=== PATIENT | female | born 1980 | race Two or more races ===

== ENCOUNTER → 2024-01-04 13:20 | Outpatient (REF) | payer BC, SELFPAY ==
--- NOTE | 2024-01-04 13:25 | PN.DIAED06 ---
Meal Plan - Gestational
- Breakfast
Gestational Diabetes Meal Plan Name: 1800 calories
Breakfast - Total Carbohydrate (grams): 30
Breakfast - Starch Carbohydrate: 1
Breakfast - Fruit Carbohydrate: 0
Breakfast - Milk Carbohydrate: 1
Breakfast - Nonstarchy Vegetables: Yes
Breakfast - Meat/Protein: 1
Breakfast - Fat: 2
- Morning Snack
Morning Snack - Total Carbohydrate (grams): 30
Morning Snack - Starch Carbohydrate: 1
Morning Snack - Fruit Carbohydrate: 0
Morning Snack - Milk Carbohydrate: 1
Morning Snack - Nonstarchy Vegetables: Yes
Morning Snack - Meat/Protein: 0.5
Morning Snack - Fat: 0
- Lunch
Lunch - Total Carbohydrate (grams): 45
Lunch - Starch Carbohydrate: 2
Lunch - Fruit Carbohydrate: 1
Lunch - Milk Carbohydrate: 0
Lunch - Nonstarchy Vegetables: Yes
Lunch - Meat/Protein: 2
Lunch - Fat: 1
- Afternoon Snack
Afternoon Snack - Total Carbohydrate (grams): 30
Afternoon Snack - Starch Carbohydrate: 1
Afternoon Snack - Fruit Carbohydrate: 1
Afternoon Snack - Milk Carbohydrate: 0
Afternoon Snack - Nonstarchy Vegetables: Yes
Afternoon Snack - Meat/Protein: 1
Afternoon Snack - Fat: 0
- Dinner
Dinner - Total Carbohydrate (grams): 45
Dinner - Starch Carbohydrate: 2
Dinner - Fruit Carbohydrate: 0
Dinner - Milk Carbohydrate: 1
Dinner - Nonstarchy Vegetables: Yes
Dinner - Meat/Protein: 2
Dinner - Fat: 2
- Evening Snack
Evening Snack - Total Carbohydrate (grams): 30
Evening Snack - Starch Carbohydrate: 1
Evening Snack - Fruit Carbohydrate: 0
Evening Snack - Milk Carbohydrate: 1
Evening Snack - Nonstarchy Vegetables: Yes
Evening Snack - Meat/Protein: 1
Evening Snack - Fat: 1
--- NOTE | 2024-01-04 13:27 | PN.DE ---
Diabetes Education
- -
Gestational Diabetes Consult
Met with Ms. Esparza and her - Tori today, , currently at 22 weeks of gestation, here today for medical nutrition therapy.
Explained glucose metabolism in body and what occurs during to cause increase blood sugar. Discussed importance of keeping BS well controlled to avoid complications to the baby during and after (macrosomia, hypoglycemia). Explained
to Julianna that she is at increased risk of developing T2DM in the future.
Provided with and instructions given on Contour Next glucometer, instructions on proper testing technique, testing sites and testing pattern given. She is aware to test FBS and 2 hr pp each meal. Expected results for FBS <95 mg/dl and 2 hr pp <120
mg/dl. She is aware if testing 1 hr pp, result should be <140 mg/dl. Noted for blood sugar of 114 1.5 hrs after lunch.
Julianna reports that she has a glucose monitor at home and has been monitoring her blood sugars 2 hrs after each meal since dx of GDM. Reviewed proper testing technique, testing sites and testing pattern. She is aware to test FBS and 2 hr pp each
meal. Expected results for FBS <95 mg/dl and 2 hr pp <120 mg/dl.
Julianna does not eat any animal protein and her diet consists mainly of starches, Milk, yogurts, plant based proteins from legumes and fruits. Explained high carbohydrate diet and macronutrients and the effect each has on blood sugar. Provided with
1800 roberta GDM meal plan. She was educated on how to read a nutritional fact label and look at total CHO in relation to serving size. No fruit or fruit juice until noontime. Provided with handout on snacks as well as 'Choose Your Foods' booklet. A Log
sheet was provided for her to record results, she will send her 4 day meal log with all her FBG and 2hr Post prandial glucose numbers to this office for review. In addition, she will send all her glucose readings to [facility] every
Wednesday. She was encouraged to keep a regular activity schedule and will reach out should she require insulin.
Pt's was asking about script for CGM, instructed to contact [facility] for script. They will reach out if they need assistance with insertion of device.
== END ==
LOC: DES 13:20
PROVIDERS: ATTENDING PHYSICIAN Student in an Organized Health Care Education/Training Program
DX: O24.419 Gestational diabetes mellitus in pregnancy, unspecified control (principal)
CPT/HCPCS: 99078

== ENCOUNTER → 2024-02-03 12:24 | Outpatient (REF) | payer BC, SELFPAY | LOC: PNTC 12:24 | PROVIDERS: ATTENDING PHYSICIAN Student in an Organized Health Care Education/Training Program | DX: O24.419 Gestational diabetes mellitus in pregnancy, unspecified control (principal); O09.529 Supervision of elderly multigravida, unspecified trimester | CPT/HCPCS: 76815 ==

== ENCOUNTER → 2024-02-15 13:31 | Outpatient (REF) | payer BC, SELFPAY | LOC: PNTC 13:31 | PROVIDERS: ATTENDING PHYSICIAN Obstetrics & Gynecology | DX: O24.419 Gestational diabetes mellitus in pregnancy, unspecified control (principal); O09.529 Supervision of elderly multigravida, unspecified trimester; O99.210 Obesity complicating pregnancy, unspecified trimester | CPT/HCPCS: 76816 ==

== ENCOUNTER → 2024-03-21 09:09 | Outpatient (REF) | payer BC, SELFPAY | LOC: PNTC 09:09 | PROVIDERS: ATTENDING PHYSICIAN Obstetrics & Gynecology | DX: O24.419 Gestational diabetes mellitus in pregnancy, unspecified control (principal); O09.529 Supervision of elderly multigravida, unspecified trimester; O99.210 Obesity complicating pregnancy, unspecified trimester | CPT/HCPCS: 59025; 76815 ==

== ENCOUNTER → 2024-03-28 10:10 | Outpatient (REF) | payer BC, SELFPAY | LOC: PNTC 10:10 | PROVIDERS: ATTENDING PHYSICIAN Obstetrics & Gynecology | DX: O09.529 Supervision of elderly multigravida, unspecified trimester (principal); O99.210 Obesity complicating pregnancy, unspecified trimester; O24.419 Gestational diabetes mellitus in pregnancy, unspecified control | CPT/HCPCS: 59025; 76815 ==

== ENCOUNTER → 2024-04-04 09:10 | Outpatient (REF) | payer BC, SELFPAY | LOC: PNTC 09:10 | PROVIDERS: ATTENDING PHYSICIAN Obstetrics & Gynecology | DX: O24.419 Gestational diabetes mellitus in pregnancy, unspecified control (principal); O99.210 Obesity complicating pregnancy, unspecified trimester; O09.529 Supervision of elderly multigravida, unspecified trimester | CPT/HCPCS: 59025; 76815 ==

== ENCOUNTER → 2024-04-11 09:28 | Outpatient (REF) | payer BC, SELFPAY | LOC: PNTC 09:28 | PROVIDERS: ATTENDING PHYSICIAN Obstetrics & Gynecology | DX: O09.529 Supervision of elderly multigravida, unspecified trimester (principal); O99.210 Obesity complicating pregnancy, unspecified trimester | CPT/HCPCS: 59025; 76816 ==

== ENCOUNTER 2024-04-18 11:47 | Observation (INO) | payer BC, SELFPAY ==
[2024-04-18 12:05] VITALS: BP 132/86; BMI 32.0
[2024-04-18 12:07] LABS: % Basophils 0.4 % (0-2); % Eosinophils 0.8 % (0-6); % Lymphocytes 17.1 % (20.5-51.1); % Monocytes 6.2 % (1.7-9.3); % Neutrophils 74.5 % (42.2-75.2); Absolute Basophils 0.1 10^3/uL (0-0.2); Absolute Eosinophils 0.1 10^3/uL (0-0.7); Absolute Immature Granulocytes 0.1 10^3/uL (0-0.05); Absolute Lymphocytes 2.1 10^3/uL (1.2-3.4); Absolute Monocytes 0.8 10^3/uL (0.1-0.6); Absolute Neutrophils 9.2 10^3/uL (1.4-6.5); Hematocrit 36.3 % (37.0-47.0); Hemoglobin 12.5 g/dL (12.0-16.0); Mean Corp Hgb Conc. 34.4 g/dL (33.0-37.0); Mean Corpuscular Hgb 28.4 pg (27.0-31.0); Mean Corpuscular Volume 82.5 fL (81.0-99.0); Mean Platelet Volume 10.1 fL (7.4-10.4); Nucleated Red Blood Cells % 0 %; Platelet Count 213 10^3/uL (130-400); Red Cell Dist. Width 13.4 % (11.5-14.5); White Blood Cell Count 12.3 10^3/uL (4.8-10.8)
[2024-04-18 12:23] LABS: ALT (SGPT) 19 U/L (0-35); AST (SGOT) 26 U/L (14-36); Alkaline Phosphatase 201 U/L (38-126); Blood Urea Nitrogen 7 mg/dl (7-17); Calcium 9.5 mg/dl (8.4-10.2); Carbon Dioxide 20 mmol/L (22-30); Chloride 105 mmol/L (98-107); Estimated Creatinine Clearance 110 ml/min; Glucose 87 mg/dl (70-99); Potassium 4.3 mmol/L (3.5-5.1); Sodium 134 mmol/L (135-145); Total Bilirubin 0.4 mg/dl (0.2-1.3); Total Protein 7.1 g/dl (6.3-8.2); eGFR > 60.00
[2024-04-18 12:58] LABS: Protein/creatinine Ratio 0.2; Urine Protein 13 mg/dl
== END 2024-04-18 15:47 | disposition home or self-care (01) ==
LOC: PNTC-IN 11:47
PROVIDERS: ADMITTING PHYSICIAN Obstetrics & Gynecology; ATTENDING PHYSICIAN Student in an Organized Health Care Education/Training Program
DX: O13.3 Gestational [pregnancy-induced] hypertension without significant proteinuria, third trimester (principal); O24.410 Gestational diabetes mellitus in pregnancy, diet controlled; Z3A.37 37 weeks gestation of pregnancy
CPT/HCPCS: 59025; 76815; 80053; 82570; 84156; 85025; G0378

== ENCOUNTER 2024-04-18 21:38 | Inpatient (IN) | payer BC, SELFPAY ==
[2024-04-18 22:06] VITALS: BP 133/81; BMI 32.0
[2024-04-18 22:32] LABS: Glucose - Point of Care 130 mg/dl (70-99)
[2024-04-18 22:36] LABS: % Basophils 0.3 % (0-2); % Eosinophils 1.1 % (0-6); % Immature Granulocytes 0.7 % (0-0.5); % Lymphocytes 17.8 % (20.5-51.1); % Monocytes 6.3 % (1.7-9.3); % Neutrophils 73.8 % (42.2-75.2); Absolute Eosinophils 0.1 10^3/uL (0-0.7); Absolute Immature Granulocytes 0.1 10^3/uL (0-0.05); Absolute Lymphocytes 2.3 10^3/uL (1.2-3.4); Absolute Monocytes 0.8 10^3/uL (0.1-0.6); Absolute Neutrophils 9.3 10^3/uL (1.4-6.5); Hematocrit 34.2 % (37.0-47.0); Hemoglobin 12.1 g/dL (12.0-16.0); Mean Corp Hgb Conc. 35.4 g/dL (33.0-37.0); Mean Corpuscular Hgb 28.7 pg (27.0-31.0); Mean Platelet Volume 10.2 fL (7.4-10.4); Nucleated Red Blood Cells % 0 %; Platelet Count 219 10^3/uL (130-400); Red Blood Cell Count 4.22 10^6/uL (4.20-5.40); Red Cell Dist. Width 13.4 % (11.5-14.5); White Blood Cell Count 12.6 10^3/uL (4.8-10.8)
[2024-04-18 22:52] LABS: ALT (SGPT) 19 U/L (0-35); AST (SGOT) 24 U/L (14-36); Albumin 3.8 g/dl (3.5-5.0); Alkaline Phosphatase 193 U/L (38-126); Blood Urea Nitrogen 9 mg/dl (7-17); Calcium 9.4 mg/dl (8.4-10.2); Carbon Dioxide 22 mmol/L (22-30); Chloride 105 mmol/L (98-107); Estimated Creatinine Clearance 110 ml/min; Glucose 128 mg/dl (70-99); Potassium 3.9 mmol/L (3.5-5.1); Sodium 138 mmol/L (135-145); Total Bilirubin 0.4 mg/dl (0.2-1.3); Total Protein 6.8 g/dl (6.3-8.2); eGFR > 60.00
[2024-04-18 23:00] LABS: Protein/creatinine Ratio 0.1; Urine Protein 19 mg/dl
--- NOTE | 2024-04-19 04:35 | DOWNTIME ---
There was a [employer] Client Campaign Worker Downtime on 04/19/2024 from 0100 to 04/19/2023 at 0205 . Downtime documentation of patient's care, including medication administrations, has been reconciled in the electronic record per guidelines. Refer to the
patient's paper chart under the miscellaneous tab to see printed paper medication records and downtime forms.
== END 2024-04-19 08:45 | disposition home or self-care (01) | DRG 833 ==
LOC: LDRP 21:38
PROVIDERS: ADMITTING PHYSICIAN Obstetrics & Gynecology
DX: O13.3 Gestational [pregnancy-induced] hypertension without significant proteinuria, third trimester (principal); O24.410 Gestational diabetes mellitus in pregnancy, diet controlled; Z3A.37 37 weeks gestation of pregnancy
CPT/HCPCS: 36415; 59025; 80053; 82570; 82962; 84156; 85025; 86850; 86900; 86901; G0378

== ENCOUNTER → 2024-04-20 08:40 | Outpatient (REF) | payer BC, SELFPAY | LOC: PNTC 08:40 | PROVIDERS: ATTENDING PHYSICIAN Obstetrics & Gynecology | DX: R03.0 Elevated blood-pressure reading, without diagnosis of hypertension (principal) | CPT/HCPCS: 59025 ==

== ENCOUNTER → 2024-04-24 13:38 | Outpatient (REF) | payer BC, SELFPAY | LOC: PNTC 13:38 | PROVIDERS: ATTENDING PHYSICIAN Obstetrics & Gynecology | DX: O24.419 Gestational diabetes mellitus in pregnancy, unspecified control (principal); O09.529 Supervision of elderly multigravida, unspecified trimester; O99.210 Obesity complicating pregnancy, unspecified trimester | CPT/HCPCS: 59025; 76816 ==

== ENCOUNTER → 2024-04-27 10:45 | Outpatient (REF) | payer BC, SELFPAY | LOC: PNTC 10:45 | PROVIDERS: ATTENDING PHYSICIAN Obstetrics & Gynecology | DX: O09.519 Supervision of elderly primigravida, unspecified trimester (principal); O24.419 Gestational diabetes mellitus in pregnancy, unspecified control; O99.210 Obesity complicating pregnancy, unspecified trimester | CPT/HCPCS: 59025 ==

== ENCOUNTER 2024-05-01 13:42 | Observation (INO) | payer BC, SELFPAY ==
[2024-05-01 14:21] VITALS: BMI 32.0
[2024-05-01 14:23] LABS: Urine Albumin 1+ (Neg - Trace); Urine Bilirubin Negative (Negative); Urine Character Slightly Cloudy (Clear); Urine Color Yellow; Urine Glucose Negative (Negative); Urine Ketone Negative (Negative); Urine Leukocyte 1+ (Negative); Urine Nitrite Negative (Negative); Urine Occult Blood 2+ (Negative); Urine Urobilinogen Negative (Neg - 1+)
[2024-05-01 14:30] LABS: % Basophils 0.5 % (0-2); % Eosinophils 0.6 % (0-6); % Immature Granulocytes 0.9 % (0-0.5); % Lymphocytes 16.8 % (20.5-51.1); % Monocytes 5.2 % (1.7-9.3); Absolute Basophils 0.1 10^3/uL (0-0.2); Absolute Eosinophils 0.1 10^3/uL (0-0.7); Absolute Immature Granulocytes 0.1 10^3/uL (0-0.05); Absolute Lymphocytes 1.8 10^3/uL (1.2-3.4); Absolute Monocytes 0.6 10^3/uL (0.1-0.6); Absolute Neutrophils 8.1 10^3/uL (1.4-6.5); Hematocrit 36.4 % (37.0-47.0); Hemoglobin 12.6 g/dL (12.0-16.0); Mean Corp Hgb Conc. 34.6 g/dL (33.0-37.0); Mean Corpuscular Hgb 28.4 pg (27.0-31.0); Mean Corpuscular Volume 82.2 fL (81.0-99.0); Mean Platelet Volume 10.7 fL (7.4-10.4); Nucleated Red Blood Cells % 0 %; Platelet Count 218 10^3/uL (130-400); Red Blood Cell Count 4.43 10^6/uL (4.20-5.40); Red Cell Dist. Width 13.3 % (11.5-14.5); White Blood Cell Count 10.7 10^3/uL (4.8-10.8)
[2024-05-01 14:32] LABS: ALT (SGPT) 14 U/L (0-35); AST (SGOT) 24 U/L (14-36); Alkaline Phosphatase 227 U/L (38-126); Blood Urea Nitrogen 11 mg/dl (7-17); Calcium 9.9 mg/dl (8.4-10.2); Carbon Dioxide 22 mmol/L (22-30); Chloride 101 mmol/L (98-107); Estimated Creatinine Clearance 110 ml/min; Glucose 101 mg/dl (70-99); Potassium 4.4 mmol/L (3.5-5.1); Sodium 134 mmol/L (135-145); Total Bilirubin 0.7 mg/dl (0.2-1.3); Total Protein 6.9 g/dl (6.3-8.2); eGFR > 60.00
[2024-05-01 14:53] LABS: Urine Amorphous Seen; Urine Squamous Cell >30 /LPF (Few); Urine Urothelial Cell 21-25 /LPF (FEW)
[2024-05-01 14:55] LABS: Urine Bacteria Many (Negative)
[2024-05-01 14:58] LABS: Protein/creatinine Ratio 0.1; Urine Protein 13 mg/dl
== END 2024-05-01 14:40 | disposition home or self-care (01) ==
LOC: PNTC-IN 13:42
PROVIDERS: ADMITTING PHYSICIAN Obstetrics & Gynecology; ATTENDING PHYSICIAN Obstetrics & Gynecology
DX: O14.93 Unspecified pre-eclampsia, third trimester (principal); O24.410 Gestational diabetes mellitus in pregnancy, diet controlled; Z3A.39 39 weeks gestation of pregnancy; O09.523 Supervision of elderly multigravida, third trimester; O09.813 Supervision of pregnancy resulting from assisted reproductive technology, third trimester; N97.9 Female infertility, unspecified
CPT/HCPCS: 59025; 76815; 80053; 81003; 81015; 82570; 84156; 85025; G0378

== ENCOUNTER 2024-05-03 05:45 | Inpatient (IN) | payer BC, SELFPAY ==
--- NOTE | 2024-05-01 09:43 | HPS.HSE ---
Family Physician
-
Family Physician: NOT KNOW UNKNOWN - PT DOES
Chief Complaint
-
repeat
History of Present Illness
HPI: Patient is a 43yo with an LM of 2/8 who presents for scheduled repeat section. She has had one prior and declines TOLAC. She has no complaints.
complications:
- Hx C/Sx1
- BMI 31.4
- GDMA1
- IVF
- Advanced maternal age
- Elevated BP- not 4hrs apart and has not met criteria for PEC or gHTN. PEC labs within normal limits.
PMHx: denies
Meds: PNV
Surghx: C/Sx1
NKDA
Socialhx: denies tobacco, etoh or illicit drug use
Famhx: mother w/ type 2 DM
OBHx: SABx1, C/Sx1 2011
labs: Blood type O+, Ab neg, Pap NILM neg HPV, Rubella immune, RPR nonreactive, UCx neg, HBsAg neg, HIV neg, GCCT neg, Hep C neg, A1C 5.9, 1hr 186 3hr abnml, GBS negative
Medical History
Past Medical History
Past Medical History: Reports None
Past Surgical History: Reports
Social History
Tobacco: Non-smoker
Alcohol: None
Drug: None
Family History
Family History: Diabetes
Allergies / Home Medications
Allergies reflects when Allergies were last updated in [facility].
Home Medications with original date entered in [facility]
Allergy/Medication List:
Meds: PNV daily
NKDA
Review of Systems
-
A 12 point ROS was completed and negative except as noted: Yes
Physical Exam
Physical Exam
General: Well Developed
HEENT: NormoCephalic
Respiratory: Non Labored Respirations
Cardiac: Regular Rhythm
Skin: Warm and Dry
Neuro: Awake, Alert and Oriented
Psych: Calm
Impression/Plan
-
IMPRESSION:
Patient is a 43yo with an EDC of 2/8 who presents for repeat section and bilateral salpingectomy
PLAN:
- Admission labs
- 2g Ancef prior to
- Patient has completed her family status and desires permanent sterilization. She is aware it is a permanent procedure and she will no longer be able to conceive children naturally. Risk of ectopic and tubal regret discussed.
- Risks, benefits and alternatives to repeat section and bilateral salpingectomy discussed including bleeding, infection, damage to surrounding structures and need for future operations. Consents were previously signed in the office.
[2024-05-03 05:50] VITALS: BP 125/89; BMI 32.0
[2024-05-03 06:03] LABS: Glucose - Point of Care 95 mg/dl (70-99)
[2024-05-03] MEDS: LR 1000 IV ×2 (06:15→07:14)
[2024-05-03 06:18] LABS: Hemoglobin 12.2 g/dL (12.0-16.0); Mean Corp Hgb Conc. 34.9 g/dL (33.0-37.0); Mean Corpuscular Hgb 28.4 pg (27.0-31.0); Mean Corpuscular Volume 81.6 fL (81.0-99.0); Mean Platelet Volume 10.4 fL (7.4-10.4); Platelet Count 200 10^3/uL (130-400); Red Blood Cell Count 4.29 10^6/uL (4.20-5.40); Red Cell Dist. Width 13.3 % (11.5-14.5); White Blood Cell Count 12.6 10^3/uL (4.8-10.8)
[2024-05-03] MEDS: TYLENOL 1000 MG PO (07:19)
[2024-05-03] MEDS: ANCEF 10 IV (07:20)
[2024-05-03] MEDS: BICITRA 30 ML PO (07:20)
[2024-05-03] MEDS: PITOCIN 30 UNITS/NSS 500 ML IV (07:59)
[2024-05-03 09:42] LABS: ALT (SGPT) 14 U/L (0-35); AST (SGOT) 23 U/L (14-36); Albumin 4.1 g/dl (3.5-5.0); Alkaline Phosphatase 228 U/L (38-126); Blood Urea Nitrogen 9 mg/dl (7-17); Calcium 9.5 mg/dl (8.4-10.2); Carbon Dioxide 20 mmol/L (22-30); Chloride 105 mmol/L (98-107); Estimated Creatinine Clearance 110 ml/min; Glucose 83 mg/dl (70-99); Potassium 4.1 mmol/L (3.5-5.1); Sodium 136 mmol/L (135-145); Total Bilirubin 0.5 mg/dl (0.2-1.3); Total Protein 7.1 g/dl (6.3-8.2); eGFR > 60.00
[2024-05-03 10:51] LABS: Protein/creatinine Ratio 0.4; Urine Protein 28 mg/dl
[2024-05-03] MEDS: TORADOL 15 MG IV ×2 (14:48→20:45)
--- NOTE | 2024-05-03 15:18 | OR.RPT ---
Operative Report
Operative Report
Preop diagnosis: IUP@39.4, history of 1 prior c/s, declines TOLAC, GDMA1
Postop diagnosis: same
Procedure: Repeat low transverse section, bilateral salpingectomy
Surgeon: Luis
Anesthesia: Spinal, Dr. Manuel
QBL: 230mL
Findings: Viable female infant born at 0758, with Apgars 8/9. Normal appearing uterus, bilateral fallopian tubes and ovaries
Complications: none
Indication: Patient is a 43yo at 39.4 weeks who presented to Labor and Delivery for scheduled repeat section. She has a history of one prior section and declines TOLAC. She has completed her family status and desires
permanent sterilization. She is aware it is a permanent procedure and she will no longer be able to conceive children naturally. Risks, benefits, and alternatives were discussed and consents were previously signed.
Procedure: Patient was taken to the operating room where spinal anesthesia was administered and found to be adequate. 2g of Ancef were given for infection prophylaxis. The abdomen was prepped with ChloraPrep. The patient was draped in the normal
sterile fashion. She was placed in the dorsal supine position with a left lateral tilt. A Pfannenstiel incision was made with a 10 blade and carried down to the fascia with a scalpel. Hemostasis achieved with Bovie. The fascia was incised and
dissected laterally with Gilmore scissors. The superior aspect of the fascia was grasped with Lexi clamps. The underlying rectus fascia was sharply dissected with Gilmore scissors. In a similar fashion the inferior aspect of the fascia was elevated with
Lexi clamps and the rectus muscle was dissected off with Gilmore scissors. The rectus muscles were down the midline to the level of the pubic symphysis with manual dissection. The peritoneum was bluntly entered and extended with manual
traction and Metzenbaum scissors.
Coon retractor and bladder blade were placed revealing good visualization of the bladder. The vesicouterine peritoneum was identified. A thin lower uterine segment was noted. The lower uterine segment was incised with a scalpel. Clear amniotic
fluid noted at entry into the cavity. The uterine incision was extended bluntly with lateral and upward traction.
The fetus was in cephalic presentation. The head was brought to the hysterotomy. Gentle fundal pressure was applied and the head delivered. The rest of the body delivered without difficulty. Delayed cord clamping was performed. The was
handed off to the drug safety assistant. Cord gases and cord blood were collected. IV oxytocin was started to facilitate uterine contractions. The placenta was expressed with fundal massage and gentle traction. The uterus was exteriorized. Allis clamps were
placed at the apices of the hysterotomy. The inside of the uterus was wiped with a lap sponge to assure complete removal of placental membranes. Fundal massage was performed and uterus noted to be firm. The uterine incision was closed with 0 Vicryl
in a running locked fashion. A horizontal imbricating stitch was done on the hysterotomy. The hysterotomy was inspected and noted to be hemostatic. Attention was turned to the right fallopian tube. The right fallopian tube was followed out to the
fimbriated end with Babcocks. The fallopian tube was removed in a stepwise fashion along the mesosalpinx using the Voyant device. Hemostasis was noted at the salpingectomy site. The procedure was repeated on the left side and the left fallopian tube
was removed using the Voyant device. Bilateral fallopian tubes were sent to pathology for evaluation. The uterus was placed back in the abdomen. Blood clots and fluid were wiped out of the abdomen and pelvis with moist laparotomy sponges. The
salpingectomy sites were inspected and noted to be hemostatic. The hysterotomy was examined again and was hemostatic.
The rectus muscles were inspected and noted to be hemostatic. The fascial layer was closed in a running continuous fashion using 0 Vicryl. The subcutaneous tissue was copiously irrigated and any small bleeding vessels were cauterized with Bovie
cautery. The subcutaneous tissue was reapproximated in a running continuous fashion with 2-0 Plain. The skin was closed with 4-0 Vicryl in a subcuticular fashion. The incision was covered with skin glue. The patient tolerated the procedure well. All
sponge and instrument counts were correct times two. The patient was taken to the recovery room in stable condition.
[2024-05-04] MEDS: TORADOL 15 MG IV ×2 (01:55→08:00)
[2024-05-04 04:45] LABS: Hematocrit 26.9 % (37.0-47.0); Hemoglobin 9.3 g/dL (12.0-16.0); Mean Corp Hgb Conc. 34.6 g/dL (33.0-37.0); Mean Corpuscular Hgb 28.7 pg (27.0-31.0); Mean Platelet Volume 10.9 fL (7.4-10.4); Platelet Count 182 10^3/uL (130-400); Red Blood Cell Count 3.24 10^6/uL (4.20-5.40); Red Cell Dist. Width 13.2 % (11.5-14.5); White Blood Cell Count 12.9 10^3/uL (4.8-10.8)
[2024-05-04] MEDS: FEOSOL 325 MG PO (08:00)
[2024-05-04] MEDS: PRENATAL PLUS 1 TABLET PO (08:00)
--- NOTE | 2024-05-04 10:38 | W.PN.ANS.POP ---
Anesthesia Post Operative
- Anesthesia Post Op Note
Vital Signs Stable-See Nursing Note: Yes
Airway Patent: Yes
Adequate Pain Control: Yes
Change in Mental Status: No
Current Postoperative Nausea & Vomiting: No
Anesthesia Complications: No
General Anesthetic Recall: No
Unplanned Admission: No
Post Op Hydration Adequate: Yes
[2024-05-04] MEDS: MOTRIN 600 MG PO ×2 (16:41→23:02)
[2024-05-05] MEDS: PRENATAL PLUS 1 TABLET PO (08:41)
[2024-05-05] MEDS: SENOKOT-S 1 TABLET PO (08:41)
[2024-05-05] MEDS: MYLICON 80 MG PO (08:42)
[2024-05-05] MEDS: FEOSOL 325 MG PO (08:42)
[2024-05-05] MEDS: TYLENOL 650 MG PO ×3 (08:47→20:42)
[2024-05-05 10:53] LABS: Syphilis/T. pallidum Ab Reflex Negative (Negative)
[2024-05-05] MEDS: MOTRIN 600 MG PO ×2 (13:47→20:42)
[2024-05-06] MEDS: MOTRIN 600 MG PO ×2 (05:11→12:52)
[2024-05-06] MEDS: TYLENOL 650 MG PO ×2 (05:11→12:52)
[2024-05-06] MEDS: PRENATAL PLUS 1 TABLET PO (08:18)
[2024-05-06] MEDS: FEOSOL 325 MG PO (08:18)
[2024-05-06] MEDS: SENOKOT-S 1 TABLET PO (08:18)
--- NOTE | 2024-05-06 09:47 | W.DS.TRANS ---
DC Summary - Application Software Developer
-
Discharge Instructions:
Discharge Diagnosis/Procedures RCS
Diet No restrictions
Instructions:
Stand-Alone Forms: LDRP Delivery
Changes to Home Medications: No
Discharge Medications:
DC Medications w/original date entered in [facility]
1 tab PO DAILY 04/18/24
ibuprofen 600 mg tablet 600 mg PO Q6HPRN PRN cramps #90 tabs 05/06/24
Home Medication Changes
Pending Results: No
Total time spent discharging patient (in min): 20
== END 2024-05-06 15:00 | disposition home or self-care (01) | DRG 785 ==
LOC: LDRP 05:45
PROVIDERS: ADMITTING PHYSICIAN Student in an Organized Health Care Education/Training Program
PROC: 10D00Z1 Extraction of Products of Conception, Low, Open Approach (ICD-10-PCS; 2024-05-03)
PROC: 0UT70ZZ Resection of Bilateral Fallopian Tubes, Open Approach (ICD-10-PCS; 2024-05-03)
DX: O34.211 Maternal care for low transverse scar from previous cesarean delivery (principal); Z3A.39 39 weeks gestation of pregnancy; Z37.0 Single live birth; Z30.2 Encounter for sterilization; O24.420 Gestational diabetes mellitus in childbirth, diet controlled; O90.81 Anemia of the puerperium; D64.9 Anemia, unspecified
CPT/HCPCS: 88302; 58605; 80053; 82570; 82962; 84156; 85027; 86780; 86850; 86900; 86901